=== PATIENT | female | born 1995 | race Caucasian/White ===

== ENCOUNTER 2018-12-17 15:33 | Observation (INO) | payer OTHER ==
[2018-12-17] MEDS ORDERED: Morphine 2 MG/ML Syringe IVPUSH PRN (15:47)
[2018-12-17] MEDS ORDERED: Ondansetron 4 MG/2 ML SDV IV PRN (15:47)
[2018-12-17] MEDS ORDERED: Ketorolac 30 MG/ML SDV IVPUSH PRN (15:47)
[2018-12-17] MEDS ORDERED: Sodium Chloride 0.9% 10 ML Syringe FLUSH PRN (15:47)
[2018-12-17] MEDS ORDERED: Dextrose 5% in Water with KCl 1,000 ML IV SCH (16:00)
[2018-12-17] MEDS ORDERED: Dextrose 5%-0.45% NaCl 1,000 ML IV SCH (16:00)
--- NOTE | 2018-12-17 16:59 | CT ---
[id number] CT/CT Head WO IV EXAM: CT Head WO IV CLINICAL DATA: HEADACHE COMPARISON: CORRELATION IS MADE WITH THE EXAM OF MARCH 17, 2018 FINDINGS: Extensive paranasal sinus disease is seen. There is no mass or mass effect. There is no hemorrhage or hydrocephalus. There are no extra-axial fluid collections. There are no sites of abnormal attenuation. IMPRESSION: NO PLAIN CT EVIDENCE OF ACUTE INTRACRANIAL PROCESS. EXTENSIVE PARANASAL SINUS DISEASE Jamison Baker MD 12/17/18 [id number] Thank you for allowing us to participate in the care of your patient.
--- NOTE | 2018-12-17 17:01 | CT ---
[id number] CT/CT Thoracic Spine WO IV Exam: CT Thoracic Spine WO IV Clinical Data: BACK COMPARISON: NO PREVIOUS SIMILAR EXAM IS AVAILABLE FINDINGS: No fracture or subluxation is seen. There are no lytic or blastic changes either. IMPRESSION: NO FRACTURE OR SUBLUXATION. Jamison Baker MD 12/17/18 [phone] Thank you for allowing us to participate in the care of your patient.
[2018-12-17] MEDS: D5 1/2 NS w/ 20 mEq/L KCl 1,000 ML IV SCH (19:52)
[2018-12-17] MEDS ORDERED: Acetaminophen 500 MG Tab PO PRN (22:15)
[2018-12-18] MEDS: D5 1/2 NS w/ 20 mEq/L KCl 1,000 ML IV SCH (05:46)
[2018-12-18 08:13] LABS: ANION GAP 20.4 mmol/L (5-15); CHLORIDE,CL 105 mmol/L (98-115); SODIUM,NA 146 mmol/L (136-145)
[2018-12-18] MEDS ORDERED: Dextrose 5%-0.45% NaCl 1,000 ML IV SCH (09:15)
[2018-12-18] MEDS: Amoxicillin 875 MG Tab PO SCH ×2 (10:19→17:36)
[2018-12-18 18:07] VITALS: BP 124/72
--- NOTE | 2018-12-23 10:13 | PCM.DCSUM1 ---
Discharge Summary - Hospital Course Diagnosis: Stroke: No - Discharge Data Discharge Date: 12/18/18 Discharge Disposition: Home, Self-Care 01 Condition: Good - Patient Instructions Diet: Usual Diet as Tolerated, Drink 8-10+ Glasses/Day Activity: As Tolerated Driving: May Drive Today Showering/Bathing: May Shower Notify Provider of: Fever, Increased Pain, Nausea and/or Vomiting - Discharge Plan Prescriptions/Med Rec: Amoxicillin 875 mg PO BID #18 tab Home Medications: Home Meds Albuterol [Ventolin HFA] 2 puff INH Q4H PRN 03/17/18 [History] medroxyPROGESTERone [Depo-Provera Contraceptive] 150 mg IM Q3M 03/17/18 [History ] Sertraline [Zoloft] 100 mg PO DAILY 12/03/18 [History] Naproxen 500 mg PO BID 12/17/18 [History] hydrOXYzine HCl [hydrOXYzine] 25 mg PO QID PRN 12/17/18 [History] Amoxicillin 875 mg PO BID #18 tab 12/19/18 [Rx] Forms: Return to Work/Inpatient OON - Discharge Summary/Plan Comment DC Time >30 min.: No Discharge Summary/Plan Comment: Final diagnosis Acute on chronic sinusitis Situational anxiety, Depression, Hypokalemia, resolved History summary 23-year-old female was admitted by Esequiel David when she came to the [facility] complaining of severe back ache that she complained radiating into her bilateral shoulders. She complained of headache started the previous night-- improved somewhat however generalized body aches the next morning along with returning headache The next day mainly into her right temporal area. She stated she had shooting type pain from one shoulder across her back down to the lower side of her back. Unknown fever, no nausea, light sensitive, no visual acuity deficit. Cervical neck pain radiating down into her back. Although she did not have any nasal congestion as outpatient she does have chronic nasal congestion with hx of chronic untreated sinus infections. Some recent situational anxiety as recent news of a family member illness. She had no diarrhea and no lower urinary tract like symptoms. Hospital summary Patient was given Toradol 60 mg prior to admission and Benadryl 25 mg IM, Outpat. CBC showed white count elevated at 14.5 with a shift to the left. CMP was is unremarkable except for potassium low at 3.2. Sed rate is normal at 17. Urinalysis showeds positive for ketones, protein and urobilinogen. Rapid strep EMY pending as outpatient. Sinus CT demonstrated significant sinus disease. She was hydrated well with fluids. Her white count trended down. He had no fever. Much improved by morning. Less anxiety. 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 Culture demonstrated mixed tim likely contamination Medication changes/adjustments upon discharge Amoxicillin 875 mg by mouth twice a day Disposition Patient was discharged from observation status. Follow-up appointment [facility] - General Info Date of Service: 12/18/18 Functional Status: Reports: Pain Controlled (Bilateral eye pain), Tolerating Diet, Ambulating, Urinating. Denies: New Symptoms - Review of Systems General: Reports: Appetite. Denies: Fever, Weakness HEENT: Reports: Sinus Congestion Pulmonary: Reports: No Symptoms Cardiovascular: Reports: No Symptoms Gastrointestinal: Reports: No Symptoms Genitourinary: Reports: No Symptoms, Flank Pain (Significant bilateral flank pain). Denies: Dysuria, Hematuria Neurological: Denies: Dizziness, Weakness Psychiatric: Reports: No Symptoms - Patient Data Vitals - Most Recent: Last Vital Signs Temp 98.7 F 12/18/18 17:05 Pulse 74 12/18/18 17:05 Resp 16 12/18/18 17:05 BP 124/72 12/18/18 17:05 Pulse Ox 99 12/18/18 17:05 Weight - Most Recent: 95 lb 11.2 oz Med Orders - Current: Current Medications Discontinued Medications Acetaminophen (Tylenol Extra Strength) 1,000 mg PO Q6H PRN PRN Reason: Pain Last Admin: 12/18/18 09:55 Dose: 1,000 mg Amoxicillin (Amoxil) 875 mg PO Q12H KANIKA Last Admin: 12/18/18 17:36 Dose: 875 mg Potassium Chloride/Dextrose (D5w With 20 Meq Kcl) 1,000 mls @ 100 mls/hr IV ASDIRECTED KANIKA Dextrose/Sodium Chloride (Dextrose 5%-1/2 Ns) 1,000 mls @ 100 mls/hr IV ASDIRECTED KANIKA Potassium Chloride/Dextrose/Sod Cl (D5 1/2 Ns W/ 20 Meq/L Kcl) 1,000 mls @ 150 mls/hr IV ASDIRECTED KANIKA Last Admin: 12/18/18 05:46 Dose: 100 mls/hr Dextrose/Sodium Chloride (Dextrose 5%-1/2 Ns) 1,000 mls @ 150 mls/hr IV ASDIRECTED [facility] Last Admin: 12/18/18 09:51 Dose: 150 mls/hr Ketorolac Tromethamine (Toradol) 30 mg IVPUSH Q6H PRN PRN Reason: Pain (moderate 4-6) Morphine Sulfate (Morphine) 2 mg IVPUSH Q4H PRN PRN Reason: Pain (severe 7-10) Ondansetron HCl (Zofran) 4 mg IV Q4H PRN PRN Reason: Nausea/Vomiting Sodium Chloride (Saline Flush) 10 ml FLUSH Q8HR PRN PRN Reason: keep vein open - Exam Quality Assessment: Denies: Supplemental Oxygen General: Reports: Alert, Oriented HEENT: Reports: Mucous Membr. Moist/[place], Other (Bilateral frontal sinus tenderness) Neck: Reports: Supple Lungs: Reports: Clear to Auscultation, Normal Respiratory Effort Cardiovascular: Reports: Regular Rate, Regular Rhythm GI/Abdominal Exam: Normal Bowel Sounds, Soft, Non-Tender, No Organomegaly, No Distention, No Mass. No: Distended, Guarding, Rigid (Female) Exam: Deferred Rectal (Female) Exam: Deferred Back Exam: Reports: CVA Tenderness (L), CVA Tenderness (R). Denies: Full Range of Motion Extremities: Non-Tender Skin: Reports: Dry Neurological: Reports: No New Focal Deficit Psy/Mental Status: Reports: Alert, Normal Affect, Normal Mood
== END 2018-12-18 17:50 | disposition home or self-care (01) ==
LOC: KA.MS 15:35 → UNDOADMOB 15:35 → KA.MS 15:47
PROVIDERS: ADMIT Physician Assistant; ATTEND Family Medicine
DX: M54.5 Low back pain (principal); R51 Headache; R07.0 Pain in throat; E87.6 Hypokalemia; D72.829 Elevated white blood cell count, unspecified; J45.20 Mild intermittent asthma, uncomplicated; F41.1 Generalized anxiety disorder; F32.9 Major depressive disorder, single episode, unspecified; Z91.018 Allergy to other foods; Z83.2 Family history of diseases of the blood and blood-forming organs and certain disorders involving the immune mechanism; Z79.1 Long term (current) use of non-steroidal anti-inflammatories (NSAID); Z79.899 Other long term (current) drug therapy
CPT/HCPCS: 36415; 70450; 72128; 80053; 81001; 82550; 85025; 87086; 96361; 96365; 96366; A9270-GY; G0378; G0379; J3480; J7042

== ENCOUNTER 2019-02-14 13:57 | Emergency (ER) | payer SELFPAY ==
[2019-02-14] MEDS ORDERED: Diazepam 5 MG Tab PO ONE (14:46)
[2019-02-14 15:09] LABS: CHLORIDE,CL 98 mmol/L (98-115); SODIUM,NA 136 mmol/L (136-145)
--- NOTE | 2019-02-14 15:43 | CR ---
[id number] RAD/RAD Lumbar Spine 2-3V EXAM: AP AND LATERAL LUMBAR SPINE. INDICATION: Back pain. COMPARISON: No previous similar exam is available for comparison. FINDINGS: No fracture or subluxation is seen. There is preservation of height of disc spaces and vertebrae. The pedicles are intact. IMPRESSION: No fracture or subluxation. Wilfredo Almaguer DO 02/14/19 1541 Thank you for allowing us to participate in the care of your patient.
[2019-02-14] MEDS ORDERED: Ketorolac 30 MG/ML SDV IVPUSH ONE (15:46)
[2019-02-14 16:06] VITALS: BP 138/89; PULSE 100
--- NOTE | 2019-02-14 16:23 | EDM.PDOC ---
ED HPI GENERAL MEDICAL PROBLEM - General Chief Complaint: General Stated Complaint: BODY ACHES Time Seen by Provider: 02/14/19 14:00 Source of Information: Reports: Patient, Family (mother) - History of Present Illness INITIAL COMMENTS - FREE TEXT/NARRATIVE: 23-year-old female presents to the emergency room with abrupt onset of severe low back pain and aches. She states that she does get some radiation of her symptoms down her back and legs. She denies any numbness or tingling. She denies saddle paresthesias. Denies significant motor weakness but generalized weakness is a component. Her symptoms started this morning. And worsened while at work. She works at [employer]. She's had multiple workups including a hospital admission for acute back pain. She's had a CT scan of her thoracic spine to prior head CTs. She's had a history of a mild electrolyte disorder with mild hypokalemia. She's had past UTIs. She denies significant abdominal or pelvic complaints currently. She denies dysuria or hematuria. She denies fever or chills. She denies current nausea. She has had emesis once today. She does have a history of anxiety and takes sertraline. She states to me that she is having further workup by her primary care physician for possible genetics disorder. She states to me that her sister has [place] syndrome. She does not smoke she does not drink. She denies use of illicit drugs. She lives in an apartment with [id number] son. Her mom lives in the same apartment complex but they do not live together. Her mom presents with her for further evaluation. Upon her arrival she was bending over with pain and discomfort but was able to easily distract her and ask her appropriate to questions and she seemed to improve. Despite this she still states when being calm her pain as a 9 out of 10. She is reasonably interactive and does answer questions appropriately she is petite and thin appearing but does not appear to be unhealthy upon presentation. Onset: Today, Sudden Duration: Hour(s):, Waxing/Waning Location: Reports: Back, Generalized Quality: Reports: Sharp Severity: Severe Improves with: Reports: Rest Worsens with: Reports: None Associated Symptoms: Reports: Nausea/Vomiting. Denies: Confusion, Chest Pain, Cough, Seizure, Shortness of Breath, Syncope Bilateral Flank Pain Score (Numeric/FACES): 10 - Related Data Allergies Allergy/AdvReac Type Severity Reaction Status Date / Time peanut Allergy Edema Verified 02/14/19 14:06 tree nut Allergy Edema Verified 02/14/19 14:06 Home Meds: Home Meds Albuterol [Ventolin HFA] 2 puff INH Q4H PRN 03/17/18 [History] medroxyPROGESTERone [Depo-Provera Contraceptive] 150 mg IM Q3M 03/17/18 [History ] Sertraline [Zoloft] 100 mg PO DAILY 12/03/18 [History] hydrOXYzine HCl [hydrOXYzine] 25 mg PO QID PRN 12/17/18 [History] Past Medical History HEENT History: Reports: Allergic Rhinitis, Impaired Vision Cardiovascular History: Reports: None Respiratory History: Reports: Asthma Gastrointestinal History: Reports: Other (See Below) Other Gastrointestinal History: [place] x2; Elevated liver function tests Genitourinary History: Reports: None 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: Musculoskeletal History: Reports: None Neurological History: Reports: Migraines Psychiatric History: Reports: Anxiety, Suicidal Ideation Endocrine/Metabolic History: Reports: None Hematologic History: Reports: Anesthesia Reaction Immunologic History: Reports: None Oncologic (Cancer) History: Reports: None Dermatologic History: Reports: Other (See Below) Other Dermatologic History: Acne - Infectious Disease History Infectious Disease History: Reports: Chicken Pox, Influenza, Mononucleosis - Past Surgical History Head Surgeries/Procedures: Reports: None HEENT Surgical History: Reports: Tonsillectomy Cardiovascular Surgical History: Reports: None Respiratory Surgical History: Reports: None GI Surgical History: Reports: None Female Surgical History: Reports: Section Endocrine Surgical History: Reports: None Neurological Surgical History: Reports: None Oncologic Surgical History: Reports: None Dermatological Surgical History: Reports: None Social & Family History - Family History Family Medical History: Noncontributory Immunologic: Reports: SLE - Caffeine Use Caffeine Use: Reports: Coffee, Energy Drinks, Soda, Tea Other Caffeine Use: Pt reports 10+ cafinated beverages/day ED ROS GENERAL - Review of Systems Review Of Systems: See Below Constitutional: Denies: Fever, Chills, Malaise, Weight Loss HEENT: Reports: No Symptoms Respiratory: Reports: No Symptoms Cardiovascular: Reports: No Symptoms Endocrine: Reports: No Symptoms GI/Abdominal: Reports: No Symptoms : Reports: No Symptoms Musculoskeletal: Reports: Back Pain, Leg Pain, Muscle Pain Skin: Reports: No Symptoms Neurological: Reports: No Symptoms Psychiatric: Reports: Anxiety, Depression Hematologic/Lymphatic: Reports: No Symptoms Immunologic: Reports: Anaphylaxis (Peanuts, tree nut) ED EXAM,LOWER BACK PAIN/INJURY - Physical Exam Exam: See Below Exam Limited By: No Limitations General Appearance: Alert, Anxious, Thin Eye Exam: Bilateral Eye: EOMI, PERRL Ears: Normal External Exam, Normal Canal, Hearing Grossly Normal, Normal TMs Nose: Normal Inspection, Normal Mucosa, No Blood Throat/Mouth: Normal Inspection, Normal Lips, Normal Teeth, Normal Gums, Normal Oropharynx, Normal Voice, No Airway Compromise Head: Atraumatic, Normocephalic Neck: Normal Inspection, Supple, Full Range of Motion Respiratory/Chest: No Respiratory Distress, Lungs Clear, Normal Breath Sounds, No Accessory Muscle Use, Chest Non-Tender Cardiovascular: Normal Peripheral Pulses, Regular Rate, Rhythm GI/Abdominal: Normal Bowel Sounds, Soft, No Organomegaly, Pelvis Stable Back Exam: Normal Inspection, Full Range of Motion Extremities: Normal Inspection, Normal Range of Motion, Non-Tender, No Pedal Edema, Normal Capillary Refill Neurological: Alert, Normal Dorsiflexion, CN II-XII Intact, Normal Gait, Normal Reflexes, Oriented x 3, Abnormal Sensation (Hypersensitivity to light touch noted throughout with somatic features). No: Babinski, Straight Leg Raise (L), Straight Leg Raise (R), Saddle Anesthesia DTR - Lower Extremities: 2+: Knee (R), Knee (L), Ankle (R), Ankle (L) Psychiatric: Anxious, Tearful Skin Exam: Warm, Dry, Intact, Normal Color, No Rash, Tattoo(s) Lymphatic: No Adenopathy Course - Vital Signs Last Recorded V/S: Last Vital Signs Temp 99.9 F 02/14/19 16:00 Pulse 100 02/14/19 16:00 Resp 14 02/14/19 16:00 BP 138/89 02/14/19 16:00 Pulse Ox 97 02/14/19 14:08 - Orders/Labs/Meds Orders: Active Orders 24 hr Category Date Time Status CULTURE URINE [RM] Stat Lab 02/14/19 15:05 Ordered UA W/MICROSCOPIC [URIN] Stat Lab 02/14/19 14:22 Incomplete Labs: Laboratory Tests 02/14/19 02/14/19 02/14/19 Range/Units 14:20 14:20 14:30 WBC 8.29 (5.00-10.00) 10^3/uL RBC 4.50 (3.80-5.50) 10^6/uL Hgb 14.6 D (12.0-16.0) g/dL Hct 39.2 (37.0-47.0) % MCV 87.1 (82.0-92.0) fL MCH 32.4 H (27.0-31.0) pg MCHC 37.2 H (32.0-36.0) g/dL RDW 13.0 (11.5-14.5) % Plt Count 248 (150-400) 10^3/uL MPV 8.5 (7.4-10.4) fL Immature Gran % (Auto) 0.2 (0.0-5.0) % Neut % (Auto) 76.5 H (50.0-70.0) % Lymph % (Auto) 10.6 L (20.0-40.0) % [place] % (Auto) 10.7 H (2.0-8.0) % Eos % (Auto) 1.6 (1.0-3.0) % Baso % (Auto) 0.4 (0.0-1.0) % Immature Gran # (Auto) 0.02 (0.00-0.50) 10^3/uL Neut # (Auto) 6.34 (2.50-7.00) 10^3/uL Lymph # (Auto) 0.88 L (1.00-4.00) 10^3/uL [place] # (Auto) 0.89 H (0.10-0.80) 10^3/uL Eos # (Auto) 0.13 (0.10-0.30) 10^3/uL Baso # (Auto) 0.03 (0.00-0.10) 10^3/uL Sodium 136 D (136-145) mmol/L Potassium 3.0 L (3.3-5.3) mmol/L Chloride 98 (98-115) mmol/L Carbon Dioxide 20.0 L (21.0-32.0) mmol/L Anion Gap 21.0 H (5-15) mmol/L BUN 4 L (6-25) mg/dL Creatinine 0.62 (0.51-1.17) mg/dL Est Cr Clr Drug Dosing 99.70 mL/min Estimated GFR (MDRD) > 60 mL/min Glucose 101 H (75 - 99) mg/dL Calcium 9.5 (8.7-10.3) mg/dL Specimen Type Urine Color (YELLOW) Urine Appearance (CLEAR) Urine pH (5.0-9.0) Ur Specific [place] (1.005-1.030) Urine Protein (NEGATIVE) mg/dL Urine Glucose (UA) (NEGATIVE) mg/dL Urine Ketones (NEGATIVE) mg/dL Urine Occult Blood (NEGATIVE) Urine Nitrite (NEGATIVE) Urine Bilirubin (NEGATIVE) Urine Urobilinogen (0.2-1.0) E.U./dL Ur Leukocyte Esterase (NEGATIVE) Urine RBC (0-5) /HPF Urine WBC (0-5) /HPF Ur Epithelial Cells /LPF Urine Bacteria (NONE TO FEW) /HPF Urine HCG, Qual Negative (NEGATIVE) 02/14/19 Range/Units 14:35 WBC (5.00-10.00) 10^3/uL RBC (3.80-5.50) 10^6/uL Hgb (12.0-16.0) g/dL Hct (37.0-47.0) % MCV (82.0-92.0) fL MCH (27.0-31.0) pg MCHC (32.0-36.0) g/dL RDW (11.5-14.5) % Plt Count (150-400) 10^3/uL MPV (7.4-10.4) fL Immature Gran % (Auto) (0.0-5.0) % Neut % (Auto) (50.0-70.0) % Lymph % (Auto) (20.0-40.0) % [place] % (Auto) (2.0-8.0) % Eos % (Auto) (1.0-3.0) % Baso % (Auto) (0.0-1.0) % Immature Gran # (Auto) (0.00-0.50) 10^3/uL Neut # (Auto) (2.50-7.00) 10^3/uL Lymph # (Auto) (1.00-4.00) 10^3/uL [place] # (Auto) (0.10-0.80) 10^3/uL Eos # (Auto) (0.10-0.30) 10^3/uL Baso # (Auto) (0.00-0.10) 10^3/uL Sodium (136-145) mmol/L Potassium (3.3-5.3) mmol/L Chloride (98-115) mmol/L Carbon Dioxide (21.0-32.0) mmol/L Anion Gap (5-15) mmol/L BUN (6-25) mg/dL Creatinine (0.51-1.17) mg/dL Est Cr Clr Drug Dosing mL/min Estimated GFR (MDRD) mL/min Glucose (75 - 99) mg/dL Calcium (8.7-10.3) mg/dL Specimen Type Urinvoid Urine Color Light yellow (YELLOW) Urine Appearance Clear (CLEAR) Urine pH 7.0 (5.0-9.0) Ur Specific [place] 1.015 (1.005-1.030) Urine Protein Negative (NEGATIVE) mg/dL Urine Glucose (UA) Negative (NEGATIVE) mg/dL Urine Ketones Negative (NEGATIVE) mg/dL Urine Occult Blood Negative (NEGATIVE) Urine Nitrite Negative (NEGATIVE) Urine Bilirubin Negative (NEGATIVE) Urine Urobilinogen 1.0 (0.2-1.0) E.U./dL Ur Leukocyte Esterase Trace H (NEGATIVE) Urine RBC 0-5 (0-5) /HPF Urine WBC 5-10 H (0-5) /HPF Ur Epithelial Cells Few /LPF Urine Bacteria Rare (NONE TO FEW) /HPF Urine HCG, Qual (NEGATIVE) Meds: Medications Discontinued Medications Generic Name Dose Route Start Last Admin Trade Name Freq PRN Reason Stop Dose Admin Diazepam 5 mg 02/14/19 14:46 02/14/19 14:54 Valium. PO 02/14/19 14:47 5 mg ONETIME ONE Administration Ketorolac Tromethamine 30 mg 02/14/19 15:46 02/14/19 15:55 Toradol IVPUSH 02/14/19 15:47 30 mg ONETIME ONE Administration - Radiology Interpretation Free Text/Narrative:: X-ray lumbar spine Normal lumbar radiographs Departure - Departure Time of Disposition: 16:10 Disposition: Home, Self-Care 01 Condition: Good Clinical Impression: Low back pain at multiple sites, Anxiety and depression, Hypokalemia - Discharge Information Instructions: Somatic Symptom Disorder, Electrolyte Disorders, Pediatric Referrals: Michelle Echols, [facility] [Primary Care Provider] - Forms: ED Department Discharge - My Orders Last 24 Hours: My Active Orders 02/14/19 14:22 UA W/MICROSCOPIC [URIN] Stat 02/14/19 15:05 CULTURE URINE [RM] Stat - Assessment/Plan Last 24 Hours: My Active Orders 02/14/19 14:22 UA W/MICROSCOPIC [URIN] Stat 02/14/19 15:05 CULTURE URINE [RM] Stat Assessment:: 1. Nonspecific low back pain 2. Anxiety depression 3. Mild hypokalemia Plan: 1. Rest 2. Hydration 3. Recommend supplemental potassium or daily banana. 4. Follow-up with your primary care next week. 5. 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 She will need further workup by her primary care. 6. Urine culture has been obtained and patient should follow-up within 48 hours other results.
== END 2019-02-14 16:15 | disposition home or self-care (01) ==
LOC: KA.ED 13:57
DX: M54.5 Low back pain (principal); F41.9 Anxiety disorder, unspecified; F32.9 Major depressive disorder, single episode, unspecified; E87.6 Hypokalemia; J45.909 Unspecified asthma, uncomplicated; Z79.899 Other long term (current) drug therapy; Z91.010 Allergy to peanuts; Z91.018 Allergy to other foods
CPT/HCPCS: 36415; 72100; 80048; 81001; 81025; 85025; 87086; 96374; 99283-25; A9270-GY; J1885

== ENCOUNTER 2020-11-17 17:15 | Emergency (ER) | payer MEDICAID, OTHER, SELFPAY ==
[2020-11-17] MEDS ORDERED: Sodium Chloride 0.9% 10 ML Syringe FLUSH PRN (17:28)
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
--- NOTE | 2020-11-17 17:50 | CR ---
[id number] RAD/RAD Chest PA And Lateral EXAM: RAD Chest PA And Lateral INDICATION: COUGH/ SOB COMPARISON: None. DISCUSSION/IMPRESSION: Cardiomediastinal silhouette is normal in size and contour. Lungs are clear. No pleural effusion or pneumothorax. Derek Goins MD 11/17/20 1541 Thank you for allowing us to participate in the care of your patient.
[2020-11-17] MEDS ORDERED: methylPREDNISolone Sodium Succinate 125 MG/2 ML SDV IVPUSH ONE (18:18)
[2020-11-17 18:22] LABS: ANION GAP 15.2 mmol/L (5-15); CHLORIDE,CL 104 mmol/L (98-107); SODIUM,NA 140 mmol/L (136-145)
[2020-11-17 18:51] VITALS: BP 132/85; PULSE 89
== END 2020-11-17 18:40 | disposition home or self-care (01) ==
LOC: KA.ED 17:15
DX: J45.901 Unspecified asthma with (acute) exacerbation (principal); E87.6 Hypokalemia; Z91.010 Allergy to peanuts
CPT/HCPCS: 71046; 80053; 85025; 96374; 99284; 99285-25; J2930